=== PATIENT | female | born 1950 | race Caucasian/White ===

== ENCOUNTER → 2023-10-20 06:02 | Day surgery (SDC) | payer MEDICARE, OTHER, SELFPAY | LOC: GI 06:02 | PROVIDERS: ATTENDING PHYSICIAN Internal Medicine Gastroenterology | DX: Z12.11 Encounter for screening for malignant neoplasm of colon (principal); K57.30 Diverticulosis of large intestine without perforation or abscess without bleeding; K64.8 Other hemorrhoids; K55.20 Angiodysplasia of colon without hemorrhage; R13.14 Dysphagia, pharyngoesophageal phase; R12 Heartburn; Q39.6 Congenital diverticulum of esophagus; K63.5 Polyp of colon; D12.3 Benign neoplasm of transverse colon; K31.7 Polyp of stomach and duodenum; K44.9 Diaphragmatic hernia without obstruction or gangrene; Z86.010 Personal history of colon polyps; Z80.0 Family history of malignant neoplasm of digestive organs; Q39.9 Congenital malformation of esophagus, unspecified | CPT/HCPCS: 45385; 43239; 88305 ==